=== PATIENT | female | born 1970 | race Caucasian/White ===

== ENCOUNTER → 2023-08-19 14:41 | Outpatient (REF) | payer OTHER, SELFPAY | LOC: RAD 14:41 | PROVIDERS: ATTENDING PHYSICIAN Obstetrics & Gynecology; FAMILY PHYSICIAN Family Medicine | DX: R93.89 Abnormal findings on diagnostic imaging of other specified body structures (principal) | CPT/HCPCS: 76830; 76856 ==

== ENCOUNTER 2023-10-01 06:11 | Day surgery (SDC) | payer OTHER, SELFPAY ==
[2023-09-26 14:06] VITALS: BMI 35.5
[2023-09-26 14:27] LABS: % Basophils 0.8 % (0-2); % Eosinophils 4.2 % (0-6); % Immature Granulocytes 0.1 % (0-0.5); % Lymphocytes 28.6 % (20.5-51.1); % Monocytes 6.4 % (1.7-9.3); % Neutrophils 59.9 % (42.2-75.2); Absolute Basophils 0.1 10^3/uL (0-0.2); Absolute Eosinophils 0.3 10^3/uL (0-0.7); Absolute Lymphocytes 2.1 10^3/uL (1.2-3.4); Absolute Monocytes 0.5 10^3/uL (0.1-0.6); Absolute Neutrophils 4.5 10^3/uL (1.4-6.5); Hematocrit 33.7 % (37.0-47.0); Hemoglobin 11.5 g/dL (12.0-16.0); Mean Corp Hgb Conc. 34.1 g/dL (33.0-37.0); Mean Corpuscular Hgb 29.1 pg (27.0-31.0); Mean Corpuscular Volume 85.3 fL (81.0-99.0); Mean Platelet Volume 9.8 fL (7.4-10.4); Nucleated Red Blood Cells % 0 %; Platelet Count 431 10^3/uL (130-400); Red Blood Cell Count 3.95 10^6/uL (4.20-5.40); Red Cell Dist. Width 12.9 % (11.5-14.5); White Blood Cell Count 7.5 10^3/uL (4.8-10.8)
[2023-09-26 14:35] LABS: INR 0.97; PT 12.9 Sec (11.4-14.6)
[2023-09-26 14:40] LABS: Blood Urea Nitrogen 9 mg/dl (7-17); Calcium 9.4 mg/dl (8.4-10.2); Carbon Dioxide 24 mmol/L (22-30); Chloride 98 mmol/L (98-107); Estimated Creatinine Clearance > 125 ml/min; Glucose 86 mg/dl (70-99); Potassium 3.7 mmol/L (3.5-5.1); Sodium 134 mmol/L (135-145); eGFR > 60.00
[2023-09-26 15:31] LABS: Beta HCG Quantitative < 2.39 mIU/ml
[2023-10-01] VITALS (14 sets, daily range): BP systolic 92–118; BP diastolic 48–89; BMI 35.5
[2023-10-01] MEDS: TYLENOL 1000 MG PO (08:14)
[2023-10-01] MEDS: HEPARIN 5000 UNITS SC (08:16)
--- NOTE | 2023-10-01 08:17 | W.SUR.PREOP ---
Pre-Operative Surgical Note
-
I have examined this patient prior to the performance of the scheduled procedure.
The patient's condition is unchanged from the time of the current History and
Physical and the patient is able to undergo the scheduled procedure.
[2023-10-01] MEDS: NORMOSOL-R 1000 IV (08:39)
--- NOTE | 2023-10-01 11:45 | W.IMMPOSTOP ---
Addendum entered and electronically signed by Yeimy Perez DO 10/01/23 14:18:
Procedure: Pelvic Washings also
Original Note:
Surgical Immed Post Op Note
-
Primary Surgeon: Yeimy Perez DO
Assisting Surgeon: n/a
Pre-op Diagnosis: Persistent complex left adnexal cyst; right ovarian cyst
Post-op Diagnosis: same; left ovarian cyst with endometriosis, right ovarian simple cyst, adhesions of small bowel to anterior abdominal wall
Procedure Performed: Laparoscopic left salpingo-oopherectomy, right salpingectomy,lysis adhesions, drainage of right ovarian cyst.
Anesthesia Type: general ET Dr. House
Specimen / Cultures: right fallopian tube, left fallopian tube with attached paratubal cyst, left ovary
Estimated Blood Loss: 5ml
Complications: none
Operative Findings: enlarged fibroid uterus and suspected adenomyosis; left ovarian cyst with superficial endometriosis, left fallopian tube with paratubal cyst. Right fallopian tube with paratubal cyst. (right paratubal cyst removed, not sent to
path due to small size. Right ovary with simple 2cm cyst. Filmy adhesions from small bowel segment in RLQ extending to anterior abdominal wall.
Counts correct times 2.
Stable to recovery.
[2023-10-01 12:20] LABS: Glucose - Point of Care 121 mg/dl (70-99)
[2023-10-01] MEDS: DILAUDID 0.25 MG IV (12:43)
== END 2023-10-01 14:15 | disposition home or self-care (01) ==
LOC: SDS 06:11
PROVIDERS: ATTENDING PHYSICIAN Obstetrics & Gynecology; FAMILY PHYSICIAN Family Medicine
DX: N80.102 Endometriosis of left ovary, unspecified depth (principal); D25.9 Leiomyoma of uterus, unspecified; N83.291 Other ovarian cyst, right side; N73.6 Female pelvic peritoneal adhesions (postinfective)
CPT/HCPCS: 58661; 88307; 36415; 80048; 82962; 84702; 85025; 85610; 86850; 86900; 86901; 88112; 93005

== ENCOUNTER → 2024-04-24 12:55 | Outpatient (REF) | payer OTHER, SELFPAY | LOC: HWRAD 12:55 | PROVIDERS: ATTENDING PHYSICIAN Family Medicine | DX: I83.813 Varicose veins of bilateral lower extremities with pain (principal) | CPT/HCPCS: 93970 ==

== ENCOUNTER → 2024-04-28 14:23 | Outpatient (REF) | payer OTHER, SELFPAY | LOC: HWRAD 14:23 | PROVIDERS: ATTENDING PHYSICIAN Nurse Practitioner Family; FAMILY PHYSICIAN Family Medicine | DX: R22.1 Localized swelling, mass and lump, neck (principal) | CPT/HCPCS: 76536 ==

== ENCOUNTER → 2024-06-12 15:35 | Outpatient (REF) | payer OTHER, SELFPAY | LOC: WDC 15:35 | PROVIDERS: ATTENDING PHYSICIAN Obstetrics & Gynecology; FAMILY PHYSICIAN Family Medicine | DX: Z12.31 Encounter for screening mammogram for malignant neoplasm of breast (principal) | CPT/HCPCS: 77063; 77067 ==

== ENCOUNTER → 2024-08-12 08:12 | Outpatient (REF) | payer OTHER, SELFPAY | LOC: HWEVLT 08:12 | PROVIDERS: ATTENDING PHYSICIAN Radiology Vascular & Interventional Radiology | DX: I83.892 Varicose veins of left lower extremity with other complications (principal) | CPT/HCPCS: 36478; C1769 ==

== ENCOUNTER → 2024-08-26 08:06 | Outpatient (REF) | payer OTHER, SELFPAY | LOC: HWEVLT 08:06 | PROVIDERS: ATTENDING PHYSICIAN Radiology Diagnostic Radiology | DX: I83.891 Varicose veins of right lower extremity with other complications (principal) | CPT/HCPCS: 36478; 93971 ==

== ENCOUNTER → 2024-09-02 07:31 | Outpatient (REF) | payer OTHER, SELFPAY | LOC: PAVMRI 07:31 | PROVIDERS: ATTENDING PHYSICIAN Orthopaedic Surgery | DX: M25.511 Pain in right shoulder (principal); M79.631 Pain in right forearm | CPT/HCPCS: 73220; A9575 ==

== ENCOUNTER → 2024-09-09 11:30 | Outpatient (REF) | payer OTHER, SELFPAY | LOC: HWEVLT 11:30 | PROVIDERS: ATTENDING PHYSICIAN Radiology Diagnostic Radiology | DX: I83.891 Varicose veins of right lower extremity with other complications (principal) | CPT/HCPCS: 93971 ==

== ENCOUNTER → 2024-09-15 14:42 | Outpatient (REF) | payer OTHER, SELFPAY | LOC: WDC 14:42 | PROVIDERS: ATTENDING PHYSICIAN Obstetrics & Gynecology; FAMILY PHYSICIAN Family Medicine | DX: R92.2 Inconclusive mammogram (principal); Z80.3 Family history of malignant neoplasm of breast | CPT/HCPCS: 76641 ==

== ENCOUNTER → 2025-03-25 15:51 | Outpatient (REF) | payer OTHER, SELFPAY | LOC: HWRAD 15:51 | PROVIDERS: ATTENDING PHYSICIAN Internal Medicine Rheumatology; FAMILY PHYSICIAN Family Medicine | DX: M13.0 Polyarthritis, unspecified (principal); M54.50 Low back pain, unspecified | CPT/HCPCS: 72114; 72202; 73130 ==

== ENCOUNTER → 2025-04-01 10:28 | Outpatient (REF) | payer OTHER, SELFPAY | LOC: HWRAD 10:28 | PROVIDERS: ATTENDING PHYSICIAN Family Medicine; REFERRING PHYSICIAN Internal Medicine Rheumatology | DX: N28.1 Cyst of kidney, acquired (principal) | CPT/HCPCS: 76770 ==

== ENCOUNTER → 2025-04-08 13:57 | Outpatient (REF) | payer OTHER, SELFPAY | LOC: RAD 13:57 | PROVIDERS: ATTENDING PHYSICIAN Family Medicine | DX: R19.02 Left upper quadrant abdominal swelling, mass and lump (principal) | CPT/HCPCS: 74170; Q9967 ==